=== PATIENT | male | born 1975 | race Two or more races ===

== ENCOUNTER 2019-07-23 21:11 | Emergency (ER) | payer BC, OTHER ==
[~2019-07-23] VITALS: Ht 162.6 cm; Wt 72.6 kg
--- NOTE | 2019-07-23 21:39 | NUR ---
Patient presents to ER with c/o of swelling to Lt elbow that began this morning. Patient denies hitting his elbow, denies pain. No acute distress. Awaiting MD gonzalez.
--- NOTE | 2019-07-23 21:47 | NUR ---
Dr. Feldman at bedside.
--- NOTE | 2019-07-23 21:54 | NUR ---
Procedure performed by Dr. Feldman to Lt elbow.
--- NOTE | 2019-07-23 22:01 | NUR ---
Patient discharged to home in stable conditon. Written and verbal after care instructions given. Patient verbalizes understanding of instructions.
[2019-07-23 22:05] VITALS: BP 128/70
== END 2019-07-23 22:01 | disposition home or self-care (01) ==
LOC: ER 21:13
DX: M70.22 Olecranon bursitis, left elbow (principal); Y93.89 Activity, other specified
CPT/HCPCS: A4663

== ENCOUNTER 2024-04-02 21:55 | Emergency (ER) | payer OTHER ==
[~2024-04-02] VITALS: Ht 167.6 cm; Wt 80.7 kg
[2024-04-02] MEDS ORDERED: DICL100G26 TP (22:42)
[2024-04-02] MEDS ORDERED: CYCL10TA9 PO (22:42)
[2024-04-02] MEDS ORDERED: IBUPROFEN 800 MG TABLET ONE (22:48)
[2024-04-02] MEDS: IBUPROFEN 800 MG TABLET PO ONE (22:48)
[2024-04-02 23:08] VITALS: BP 120/78; TEMP 98; O2SAT 98
== END 2024-04-02 22:55 | disposition home or self-care (01) ==
LOC: ER 21:56
DX: M54.50 Low back pain, unspecified (principal); Z79.899 Other long term (current) drug therapy; Z88.7 Allergy status to serum and vaccine
CPT/HCPCS: A4606; A4663